=== PATIENT | female | born 1955 | race Caucasian/White ===

== ENCOUNTER → 2017-09-24 | Outpatient (CLI) | payer BC | LOC: GMAM 15:47 | PROVIDERS: ATTEND Nurse Practitioner Family | DX: R10.13 Epigastric pain (principal) ==

== ENCOUNTER → 2018-06-05 | Outpatient (CLI) | payer BC | LOC: GMAM 16:35 | PROVIDERS: ATTEND Family Medicine | DX: I25.10 Atherosclerotic heart disease of native coronary artery without angina pectoris (principal) ==

== ENCOUNTER → 2018-06-17 | Outpatient (CLI) | payer OTHER ==
--- NOTE | 2018-06-17 13:45 | CT ---
EXAM DESCRIPTION: Chest w/Contrast : Computed Tomography. CLINICAL HISTORY: 62 years Female CHEST PN, ABD PN COMPARISON: CT scan of abdomen and pelvis with IV contrast. TECHNIQUE: Spiral-axial scans at 5 x 5 mm intervals through the lungs and thorax with IV contrast. 2.5 x 5 mm lung algorithm axial reconstructions. Coronal and sagittal 2.0 Mm reconstructions. No adverse reactions. Total Exam DLP: 207.25 mGy-cm. This exam was performed according to our departmental dose-optimization program which includes automated exposure control, adjustment of the mA and/or kV according to patient size and/or use of iterative reconstruction technique; to reduce radiation dose to as low as reasonably achievable (ALARA). Nodule measurements under 10 mm are given as mean value of 3 axes diameters. FINDINGS: Lungs and large airways: Minimal posterior dependent atelectasis bilateral bases. Bilateral mild none reticulations. No significant dilation of airspaces, no nodularity, no abnormal nodules or focal masses and no focal infiltrates. Subpleural nodules 3 mm diameter and less in the right upper lobe and right lower lobe. Pleural spaces: Minimal apical pleural thickening. Pleural parenchymal scar right lower lobe. No effusion or pneumothorax. Mediastinum and Martha: Negative. Great vessels and Heart: Atherosclerotic calcifications in the aortic arch and descending thoracic aorta. Soft tissues of neck base, axillae, and chest wall: Coarse calcifications bilateral breast. Normal size and appearing axillary lymph nodes. Partial visualization of the thyroid gland. Upper abdomen: Please see report on CT scan of abdomen and pelvis on this visit. Osseous structures: Early spondylosis thoracic spine. No lytic or blastic lesions. Mild arthrosis bilateral sternoclavicular joints. IMPRESSION: 1. Mild reticulations in the bilateral lungs with no definite emphysematous changes are trapping. Nodules 3 mm diameter and less in the right lung. No abnormal nodules, no masses, no focal infiltrates. No abnormal soft tissues. Bilateral breast calcifications. Consider follow-up bilateral screening mammogram if not performed in the past year. [facility] Best Practice recommendations for CT lung imaging follow-up: No routine follow-up. Please see 2017 Fleischner Society guidelines below*. *2017 Fleischner Society Recommendations for Multiple Solid Lung Nodules Follow-Up base on size (average of long- and short-axis diameters). Use most suspicious nodule for followup. Nodule Size <6 mm Low-Risk Patient: No routine follow-up Electronically signed by: Jareth Brown MD 06/17/2018 1:42 PM CDT
--- NOTE | 2018-06-17 21:13 | CT ---
EXAM DESCRIPTION: Abdomen/Pelvis w/Contrast: Computed Tomography. CLINICAL HISTORY: 62 years Female CHEST PN, ABD PN. Previous appendectomy. COMPARISON: None. TECHNIQUE: Spiral-axial scans at 5 x 5 mm intervals through the abdomen and pelvis, after nonionic IV contrast no oral contrast Coronal and sagittal 2.0 mm reconstructions. Delayed scans, liver through the pelvis. Axial-spiral 5mm. No adverse reactions. Total Exam DLP: 1002.02 mGy-cm. This exam was performed according to our departmental dose-optimization program which includes automated exposure control, adjustment of the mA and/or kV according to patient size and/or use of iterative reconstruction technique; to reduce radiation dose to as low as reasonably achievable (ALARA). FINDINGS: Lung bases and pleura: Please see chest CT report from the same visit. Liver, Stomach, Spleen, Adrenal Glands: Negative. Pancreas, Gallbladder, Ducts: Surgical clips in the gallbladder fossa with no fluid. Dilated common bile duct. Normal echogenicity of the pancreas with small pancreatic duct. Kidneys and Ureters: Unremarkable. Mesentery: Negative. Aorta: Moderate atherosclerotic calcification distally and minimal narrowing with intimal wall thickening predominantly below the renal arteries. Small Bowel: Minimal gas and air-fluid levels proximally with smaller air-fluid levels distally Terminal Ileum/Cecum: Fluid present with no air-fluid levels and minimal thecal material in the cecum. Colon: Moderate amount of fecal material and minimal gas throughout the colon with minimal redundancy of the sigmoid colon. No complications. Pelvic Organs: Vaginal cuff is negative. Pelvic calcifications. Urinary bladder not distended and no radiodense stones. Spine and Bony Pelvis: Loss of disc space at L5-S1 with bulging posterior disc canal and foraminal narrowing. Hypertrophic bilateral superior lateral acetabula with partial over covering of the bilateral femoral heads. Minimal pubic symphysis arthrosis Abdominal Wall/Back Soft Tissues: small lymph nodes. No hernias IMPRESSION: 1. Moderate atherosclerosis mid and distal aorta. 2. No retroperitoneal or peritoneal mass, no free fluid, no free air. 3. Acetabula over coverage of femoral heads, could be femoral-acetabular impingement Electronically signed by: Jareth Brown MD 06/17/2018 9:10 PM CDT
== END ==
LOC: CT 07:49
PROVIDERS: ATTEND Family Medicine
DX: I70.0 Atherosclerosis of aorta (principal); R91.1 Solitary pulmonary nodule; R07.89 Other chest pain; R10.84 Generalized abdominal pain

== ENCOUNTER → 2019-08-13 | Outpatient (CLI) | payer BC | LOC: GMAM 14:25 | PROVIDERS: ATTEND Family Medicine | DX: R51 Headache (principal); E78.00 Pure hypercholesterolemia, unspecified ==

== ENCOUNTER → 2019-08-18 | Outpatient (CLI) | payer BC ==
--- NOTE | 2019-08-18 15:02 | MRI ---
EXAM DESCRIPTION: Brain w/o Contrast: MRI. CLINICAL HISTORY: HEADACHE COMPARISON: CT scan of the head November 2013. TECHNIQUE: Multiplanar, high-field MRI unit, multiple diffusion sequences, multiple conventional sequences without contrast. FINDINGS: Normal FLAIR and T2-weighted signal in the periventricular white matter and sykes/sub-cortical white matter junctions of the cerebral hemispheres. .. Normal signal in the bilateral basal ganglia. Normal signal in the brainstem and cerebellar hemispheres.. Concordance of the diffusion and non-diffusion sequences with no diffusion restriction. Cortical sulci, ventricles, and other CSF spaces, and the subdural spaces are normally configured for patients age. No effacement or displacement. No midline shift. No extra-axial hemorrhage. Normal flow signal void in the major vessels of the [place], and the venous sinuses. IACs are symmetric bilaterally. Hyperintense T2 signal in several left side mastoid air cells. No mass effect in the bilateral cerebellopontine angles. Pituitary gland occupies all of the sella. Base of the cerebellar tonsils is at the level of the foramen magnum. Minimal mucoperiosteal thickening in the paranasal sinuses. The bony calvarium is intact. Homogeneous fatty density hyperintense T2 and T1-weighted mass between the outer table of the right occipital skull near the midline and the scalp. IMPRESSION: 1. Normal noncontrast MRI scan of the brain no intra-axial extra-axial hemorrhage. No mass effect or midline shift. 2. Normal noncontrast diffusion scan of the brain with no evidence of diffusion restriction, significant acute or subacute ischemia or infarction. 3. Minimal chronic paranasal sinusitis. 4. 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 Electronically signed by: Jareth Brown MD 08/18/2019 3:00 PM CDT
== END ==
LOC: MRI 10:51
PROVIDERS: ATTEND Family Medicine
DX: J32.9 Chronic sinusitis, unspecified (principal); M79.9 Soft tissue disorder, unspecified; R51 Headache